=== PATIENT | female | born 1980 | race Caucasian/White ===

== ENCOUNTER 2023-01-04 16:19 | Emergency (ER) | payer BC, SELFPAY ==
[2023-01-04 16:43] VITALS: BP 130/81; PULSE 84; RESP 18; TEMP 36.7; O2SAT 99; BMI 24.3
[2023-01-04 17:06] LABS: Appearance Urine Clear (Clear); Bilirubin Urine Negative (Negative); Blood Urine 2+ (Negative); Color Urine Yellow (Yellow); Glucose Urine Negative (Negative); Ketones Urine Negative (Negative); Leukocyte Esterase Urine Negative (Negative); Nitrite Urine Negative (Negative); Protein Urine Negative (Negative); Urobilinogen Urine 0.2 (0.2-1.0)
[2023-01-04 17:13] LABS: RBC Urine 0-2 (0-2); WBC Urine 0-2 (0-5)
--- NOTE | 2023-01-04 20:34 | CRLHL7_ITS ---
For Patients: As a result of the Century Cures Act, medical imaging exams and procedure reports are released immediately into your electronic medical record. You may view this report before your referring provider. If you have questions, please contact your health care provider. INDICATION: Seven weeks , vaginal bleeding. TECHNIQUE: Ultrasound OB pelvis transabdominal. Real-time cuevas-scale imaging of the pelvis was performed. COMPARISON: None FINDINGS: No intrauterine gestational sac identified, no pole identified. Thickened heterogeneous endometrium measures up to 1.7 cm. Unremarkable appearance of the bilateral ovaries. No adnexal mass identified. IMPRESSION: No intrauterine gestational sac or pole identified. Findings constitute of unknown location, differentials of which include a very early not yet detected with ultrasound, unidentified ectopic , or complete miscarriage. Recommend correlation and trending of serum beta HCG, and repeat ultrasound as clinically indicated. Dictated by Baldomero Medrano MD @ 01/04/2023 10:43:38 PM (Electronically Signed)
--- NOTE | 2023-01-04 20:35 | ED_ITS ---
HPI - General Chief complaint: Vaginal Bleeding Stated complaint: vaginal bleeding Time Seen by Provider: 01/04/23 20:27 History of Present Illness HPI Narrative: This 42-year-old female states that she is 7 weeks with her 4th . She reports some blood in occasional cramping that occurred today. She felt that she was constipated and was bearing down on the toilet and had a discharge of blood in the form a clot coming from her vaginal vault. She called the OB department and was told to come here for evaluation. She had been waiting more than 4 hours before she was able to be seen here because of how busy it is today. She arrives with normal vital signs. She is not describing this as like a heavy menstrual period. Related Data Home Medications Medication Instructions Recorded Confirmed ibuprofen 200 mg tablet 600 mg PO Q6H PRN 06/04/22 01/04/23 albuterol sulfate 90 mcg/actuation 2 puff inhalation Q4-6H PRN 06/05/22 01/04/23 aerosol inhaler prednisone 20 mg tablet 20 mg PO BID 06/05/22 01/04/23 + Iron 01/04/23 Previous Rx's Medication Instructions Recorded fluconazole 150 mg tablet 150 mg PO ONCE #2 tabs 07/21/22 (Diflucan) Allergies Allergy/AdvReac Type Severity Reaction Status Date / Time Penicillins Allergy Verified 01/04/23 16:51 Review of Systems Status of ROS: Reports: 10 or more systems reviewed and unremarkable except as noted in History and below Narrative: Constitutional: No fevers, no weight gain or loss. Eyes: No discharge. No vision changes. HENT: No congestion, no sore throat, no ear pain. Cardiovascular: No chest pain, no palpitations. Respiratory: No shortness of breath, no wheezes, no cough. Gastrointestinal: No vomiting, no diarrhea. She does have some episodes of rectal bleeding from hemorrhoids occasionally. Genitourinary: No dysuria, no hematuria. Musculoskeletal: Normal range of motion. Skin: No rashes, no pruritis. Neurological: No dizziness, weakness, sensory change, speech change. Endo/Heme/Allergies: No bruising or bleeding. No polydipsia. Pysch: no suicidality, no anxiety, no insomnia. All other systems reviewed and are negative. [facility] Medical History (Updated 01/04/23 @ 22:05 by Gaston Desir MD) No significant past medical history Surgical History (Updated 01/04/23 @ 20:42 by Williams Scales RN) No significant past surgical history Social History Smoking Status: Never smoker Second hand tobacco smoke exposure: No How often do you have a drink containing alcohol: never How often do you have six or more drinks on one occasion: Never AUDIT-C Alcohol total score: 0 Non-prescribed substance use: denies use Exam Narrative: Exam Narrative: Constitutional: Well-developed, well-nourished, no acute distress. HEENT: Normocephalic, atraumatic. Neck: Normal range of motion. Nontender. Supple. Heart: Regular. No murmurs. Normal rate. Intact distal pulses. Lungs: Clear to auscultation. No chest discomfort. No wheezes, rhonchi, or rales. Abdomen: Normal bowel sounds. Nontender. No rebound tenderness. Genitalia: Deferred. Back: No midline tenderness. Normal range of motion. Extremities: Normal range of motion. No injury. Skin: Intact. No rash. Warm. No erythema or pallor. Neurologic: No altered sensation. No weakness. Alert and oriented. Psychiatric: No suicidality. No anxiety or depression. No insomnia. Nursing notes and vitals signs are reviewed. Const: Vital Signs, click to edit/add: Vital Signs - 24 hr 01/04/23 16:43 Temperature 98.1 F Pulse Rate [Pulse Oximeter] 84 Respiratory Rate 18 Blood Pressure [Ri ght Upper Arm] 130/81 Pulse Oximetry 99 Oxygen Delivery Me thod Room Air Course Vital Signs Vital signs: Initial Vital Signs Temperature 98.1 F 01/04/23 16:43 Temperature Source Temporal Artery Scan 01/04/23 16:43 Pulse Rate 84 01/04/23 16:43 Pulse Rhythm Regular 01/04/23 16:43 Respiratory Rate 18 01/04/23 16:43 Blood Pressure 130/81 01/04/23 16:43 Blood Pressure Mean 97 01/04/23 16:43 Blood Pressure Position Sitting 01/04/23 16:43 Pulse Oximetry 99 01/04/23 16:43 Oxygen Delivery Method Room Air 01/04/23 16:43 Vital Signs Temperature 98.1 F 01/04/23 16:43 Pulse Rate 84 01/04/23 16:43 Respiratory Rate 18 01/04/23 16:43 Blood Pressure 130/81 01/04/23 16:43 Pulse Oximetry 99 01/04/23 16:43 Oxygen Delivery Method Room Air 01/04/23 16:43 Temperature 98.1 F 01/04/23 16:43 Pulse Rate 84 01/04/23 16:43 Respiratory Rate 18 01/04/23 16:43 Blood Pressure 130/81 01/04/23 16:43 Pulse Oximetry 99 01/04/23 16:43 Oxygen Delivery Method Room Air 01/04/23 16:43 MDM - OB/Uterine Contractions MDM Narrative Medical decision making narrative: This patient comes in reporting vaginal bleeding and some cramping. I went to revisit with her after ultrasound results and she tells me that she has been having some cramping over the past several days with some bleeding and things became much worse today. She states that she is feeling better now. Ultrasound is acquired and shows no evidence of intrauterine or ectopic . This patient most likely had a miscarriage. She states that she would like to have a beta hCG level drawn and would not need to wait for results. The patient does have vital signs that are normal and is okay to return home. I did express my sorrow over this loss of a and stated signs or symptoms where she should return if feeling worse. She is recommended to follow up with her primary physician regarding this. Lab Data Labs: Lab Results 01/04/23 Range/Units 16:58 Urine Color Yellow (Yellow) Urine Appearance Clear (Clear) Urine pH 7.0 (5.0-8.5) Ur Specific [facility] 1.010 (1.000-1.030) Urine Protein Negative (Negative) Urine Glucose (UA) Negative (Negative) Urine Ketones Negative (Negative) Urine Blood 2+ A (Negative) Urine Nitrite Negative (Negative) Urine Bilirubin Negative (Negative) Urine Urobilinogen 0.2 (0.2-1.0) Ur Leukocyte Esterase Negative (Negative) Urine RBC 0-2 (0-2) Urine WBC 0-2 (0-5) Ur Squamous Epith Cells None (None-Few) Urine Bacteria None (None) Discharge Plan Discharge Clinical Impression: Miscarriage Patient Disposition: Home, Self-Care Condition: Stable Additional Instructions: Take plenty of fluids. Use [id number] medicines as needed and directed. Follow up with primary physician or OBGYN physician. Return if worsening. Prescriptions: No Action ibuprofen 200 mg tablet 600 mg PO Q6H PRN + Iron prednisone 20 mg tablet 20 mg PO BID Hold Instructions: Order Change Rx Instructions: BID x 5 days albuterol sulfate 90 mcg/actuation HFA aerosol inhaler 2 puff inhalation Q4-6H PRN Hold Instructions: Order Change fluconazole [Diflucan] 150 mg tablet 150 mg PO ONCE Qty: 2 0RF Hold Instructions: Order Change Rx Instructions: Take one tablet by mouth today. May take additional one tablet in 3 days if symptoms persist. Follow Up/Referrals: Provider,Not a Local [Primary Care Provider] - Stand Alone Forms: Social[employer] Info Instructions
[2023-01-04 20:50] VITALS: BP 136/81; PULSE 75; RESP 16; O2SAT 97
[2023-01-04 21:01] VITALS: BP 112/76; PULSE 78; RESP 16; O2SAT 99
[2023-01-04 22:13] VITALS: BP 122/74; PULSE 79; RESP 16; TEMP 36.9; O2SAT 99
[2023-01-04 22:18] VITALS: BP 122/74; PULSE 79; RESP 16; TEMP 36.9
== END 2023-01-04 22:31 | disposition home or self-care (01) ==
PROVIDERS: Emergency Provider Emergency Medicine Emergency Medical Services
DX: O03.9 Complete or unspecified spontaneous abortion without complication (principal)
CPT/HCPCS: 36415; 76817; 81001; 84702; 99282; 99283; 99284

== ENCOUNTER 2023-01-11 15:19 | Outpatient (CLI) | payer BC, SELFPAY | END 2023-01-11 15:20 | disposition home or self-care (01) | LOC: NFLDREF 01-13 21:54 | PROVIDERS: Visit Provider Obstetrics & Gynecology | DX: O03.9 Complete or unspecified spontaneous abortion without complication (principal) | CPT/HCPCS: 84702 ==

== ENCOUNTER 2023-01-20 08:17 | Outpatient (CLI) | payer BC, SELFPAY | END 2023-01-20 08:18 | disposition home or self-care (01) | PROVIDERS: Visit Provider Family Medicine | DX: Z00.00 Encounter for general adult medical examination without abnormal findings (principal); R53.83 Other fatigue; G89.29 Other chronic pain; Z13.6 Encounter for screening for cardiovascular disorders | CPT/HCPCS: 80053; 80061; 84443; 84702; 85027 ==

== ENCOUNTER 2023-02-22 15:56 | Outpatient (CLI) | payer BC, SELFPAY ==
[2023-02-22 22:39] LABS: PCR FLU A Negative PCR FLU A (Negative); PCR FLU B Negative PCR FLU B (Negative); PCR RSV Negative PCR RSV (Negative)
[2023-02-22 22:44] LABS: SARS PCR* Negative SARS-CoV-2 (Negative); Strep A DNA Probe* NOT DETECTED (Not Detectd)
== END 2023-02-22 15:57 | disposition home or self-care (01) ==
PROVIDERS: PCP Family Medicine; Visit Provider Nurse Practitioner Family
DX: J39.9 Disease of upper respiratory tract, unspecified (principal); J02.9 Acute pharyngitis, unspecified
CPT/HCPCS: 87631; 87651

== ENCOUNTER 2023-04-22 15:34 | Outpatient (CLI) | payer BC, SELFPAY ==
--- NOTE | 2023-04-22 15:40 | CRLHL7_ITS ---
For Patients: As a result of the Century Cures Act, medical imaging exams and procedure reports are released immediately into your electronic medical record. You may view this report before your referring provider. If you have questions, please contact your health care provider. BILATERAL SCREENING MAMMOGRAM WITH COMPUTER-AIDED DETECTION AND TOMOSYNTHESIS TECHNIQUE: CC and MLO views were obtained. These mammographic images have been obtained using full-field digital technique. These mammographic images were interpreted with the benefit of computer-aided detection. Breast tomosynthesis was used in this interpretation. COMPARISON FILM: 12/12/20. FINDINGS: There are scattered areas of fibroglandular density. IMPRESSION: There is no radiographic evidence for malignancy. ASSESSMENT: BI-RADS Category 1: Negative RECOMMENDATION: Routine screening mammogram in 1 year. A lay language report of this examination will be provided to the patient. KEE PANDEY M.D. Diagnostic Radiologist [email or web address] WILLIE/vasyl Transcribed: 04/23/2023, 1:[address]/Dictated by: Kee Pandey MD @ 04/23/2023 12:31:00 PM (Electronically Signed)
== END 2023-04-22 15:35 | disposition home or self-care (01) ==
LOC: MAMMO 15:36
PROVIDERS: PCP Family Medicine; Visit Provider Family Medicine
DX: Z12.31 Encounter for screening mammogram for malignant neoplasm of breast (principal)
CPT/HCPCS: 77063; 77067

== ENCOUNTER 2023-05-03 15:24 | Outpatient (CLI) | payer BC, SELFPAY ==
--- OUTSIDE RECORDS SUMMARY | 2023-05-03 15:38 | XMS_ITS | Clinical Summary ---
Author Name Unknown Organization [facility] Address [address] [place] [address] Care Team Providers Care Door Clamper Name Role Phone Michell Sewell MD Primary Care Provider Source Comments You are receiving this document as you are listed as the primary care provider,follow-up provider, or the patient has been referred to you for consultation.This is in compliance with the Medicare and[facility] EHR Incentive Program,which states Providers who transition their patient to another setting of careor provider of care or refers their patient to another provider of care shouldprovide summary care record for each transition of care or referral. [facility] Allergies Active Allergy Reactions Criticality Noted Date Comments Penicillins 10/06/2002 PN: LW Reaction: HIVES Medications Medication Sig Dispensed Refills Start Date End Date Status ibuprofen (AKA MOTRIN) 200 MG tablet Take 3 tablets by mouth 3 times daily. LW Addl Instr:Take with food. 0 08/11/2010 Active triamcinolone acetonide (AKA KENALOG) 0.1 % ointmentIndications: Skin lesion Apply topically 2 times daily as needed for Itching. 15 g 0 07/25/2014 Active FLUTICASONE FUROATE IN 0 Active ALBUterol sulfate HFA 108 (90 Base) MCG/ACT inhaler Inhale 1-2 Puffs every 4 hours as needed for Wheezing. Also use 15-30 min prior to exercise 1 Inhaler 0 02/16/2019 Active loratadine-pseudoeph edrine (CLARITIN-D 12HOUR) 5-120 MG tablet Take 1 Tablet by mouth two times a day. 0 02/16/2019 Active fluconazole (DIFLUCAN) 150 MG tablet Take 1 Tablet by mouth once for 1 dose. 1 Tablet 0 02/16/2019 Active clindamycin (CLEOCIN) 150 MG capsule Take 1 Capsule by mouth three times a day. 0 02/16/2019 Active Active Problems Problem Noted Date Diagnosed Date Irritable bowel syndrome 10/06/2002 Overview: LW Onset: [id number] Resolved Problems Problem Noted Date Diagnosed Date Resolved Date Noninfectious gastroenteritis and colitis 10/06/2002 10/07/2011 Overview: LW Onset: [id number] ; Colitis Collagenous Immunizations Name Administration Dates Next Due Flu Vac Preserv Free (3+yrs) 01/11/2012, 01/07/2011,12/31/2009, 009,01/26/2008,02/03/2006 H1n1 Miv Sanofi 3+ Yr (Injected) 03/02/2009 Influenza IIV4 (Quadrivalent ) 0.5mL (71427) 2015,01/31/2015 Influenza LAIV (Nasal, 2-49 yrs) 01/31/2013 Influenza Vaccine Q/LAIV Int ranasal 2-49 yrs ([facility]) 01/16/2014 TDAP (BOOSTRIX) 01/11/2012 Td 04/19/1999,06/16/1996 Varicella 08/01/1998(Deferred: Immune by Benoit collier) Family History Medical History Relation Name Comments Cataract Mother Depression Mother Thyroid Disorder Mother Cancer, Lung Maternal Grandmother Cataract Maternal Grandmother Heart Disease Paternal Grandfather Glaucoma Paternal Grandmother Thyroid Disorder Sister 1 Anxiety Sister 2 x 2 Cancer, Breast Negative Family History Cancer, Ovary Negative Family History Relation Name Status Comments Father Alive Mother Alive Maternal Grandfather Maternal Grandmother Paternal Grandfather Paternal Grandmother Alive Sister 1 Alive Sister 2 Alive Social History Tobacco Use Types Packs/Day Years Used Date Smoking Tobacco: Never Smokeless Tobacco: Never Alcohol Use Standard Drinks/Week Comments Not Currently 1 (1 standard drink = 0.6 oz pur e alcohol) occasl Sex and Gender Information Value Date Recorded Sex Assigned at Not on file Gender Identity Not on file Sexual Orientation Not on file Last Filed Vital Signs Vital Sign Reading Time Taken Comments Blood Pressure 126/82 03/20/2019 2:18 PM CUSTOMER SERVICE SALES ASSOCIATE Pulse 68 03/20/2019 2:18 PM CUSTOMER SERVICE SALES ASSOCIATE Temperature 36.6 ??C (97.9 ??F) 08/07/2015 2:50 PM CD T Respiratory Rate 18 09/28/2012 3:35 PM CDT Oxygen Saturation 100% 08/07/2015 2:50 PM CDT Inhaled Oxygen Concentration - - Weight 79.4 kg (175 lb) 03/20/2019 2:18 PM CUSTOMER SERVICE SALES ASSOCIATE Height 170.2 cm (5' 7) 03/20/2019 2:18 PM CUSTOMER SERVICE SALES ASSOCIATE Body Mass Index 27.41 03/20/2019 2:18 PM CUSTOMER SERVICE SALES ASSOCIATE Plan of Treatment Health Maintenance Due Date Last Done Comments HepB (1) 1978 COVID-19 Vaccine (#1) 06/30/1979 HIV Screening (Preventive Services) 1994 Adult Preventive Visit 1996 Cervical Cancer Screening 08/24/20172014, 09/25/2011, 09/25/2011 (Completed), Additional history exists Influenza (#1) 2022 02/14/2020, 01/18, 01/18/2017, Additional history exists DTaP/Tdap/Td (4 - Tdap) 05/20/2026 05/20/19 17, 01/11/2012, 04/19/1999, Additional history exists Zoster/Shingles (1 of 2) 2028 Pneumococcal Aged Out 11/01/2018 No longer eligi ble based on patient's age to complete this topic Hep C Screening (Preventive Services) Completed 03/20/2019 HPV Vaccine Aged Out No longer eligi ble based on patient's age to complete this topic HepA Aged Out No longer eligi ble based on patient's age to complete this topic Hib Aged Out No longer eligi ble based on patient's age to complete this topic IPV (Polio) Aged Out No longer eligi ble based on patient's age to complete this topic MCV4 Aged Out No longer eligi ble based on patient's age to complete this topic Care Teams Door Clamper Relationship Specialty [place] [address] [address] [address] [place] [place] [address] [facility] - General 07/25/14
--- OUTSIDE RECORDS SUMMARY | 2023-05-03 15:38 | XMS_ITS | Encounter Summary ---
Author Name Unknown Organization [facility] Address [address] [place] [address] Care Team Providers Care Guinea Pig Breeder Name Role Phone Michell Sewell MD Primary Care Provider Encounter Details Date Type Department Care Team Description 08/05/1998 [place] [address] [place] [address] Social History Tobacco Use Types Packs/Day Years Used Date Smoking Tobacco: Never Assessed Sex and Gender Information Value Date Recorded Sex Assigned at Not on file Gender Identity Not on file Sexual Orientation Not on file documented as of this encounter Plan of Treatment Not on file documented as of this encounter Visit Diagnoses Not on filedocumented in this encounter Care Teams Guinea Pig Breeder Relationship Specialty [place] [address] [place] [address] PCP - General 07/25/14 documented as of this encounter
== END 2023-05-03 15:25 | disposition home or self-care (01) ==
PROVIDERS: PCP Nurse Practitioner Family; Visit Provider Nurse Practitioner Family
DX: R10.11 Right upper quadrant pain (principal)
CPT/HCPCS: 80053; 82150; 83690; 85025

== ENCOUNTER 2023-05-06 15:47 | Outpatient (CLI) | payer BC, SELFPAY ==
--- OUTSIDE RECORDS SUMMARY | 2023-05-06 15:49 | XMS_ITS | Encounter Summary ---
Author Name Unknown Organization [facility] Address [address] [place] [address] Care Team Providers Care General Operations Manager Name Role Phone Michell Sewell MD Primary Care Provider Encounter Details Date Type Department Care Team Description 08/05/1998 [place] [address] [place] [address] Social History Tobacco Use Types Packs/Day Years Used Date Smoking Tobacco: Never Assessed Sex and Gender Information Value Date Recorded Sex Assigned at Not on file Gender Identity Not on file Sexual Orientation Not on file documented as of this encounter Plan of Treatment Not on file documented as of this encounter Visit Diagnoses Not on filedocumented in this encounter Care Teams General Operations Manager Relationship Specialty [place] [address] [place] [address] PCP - General 07/25/14 documented as of this encounter
--- OUTSIDE RECORDS SUMMARY | 2023-05-06 15:49 | XMS_ITS | Clinical Summary ---
Author Name Unknown Organization [facility] Address [address] [place] [address] Care Team Providers Care Daub Color Mixer Name Role Phone Michell Sewell MD Primary Care Provider Source Comments You are receiving this document as you are listed as the primary care provider,follow-up provider, or the patient has been referred to you for consultation.This is in compliance with the Medicare and[facility] EHR Incentive Program,which states Providers who transition their patient to another setting of careor provider of care or refers their patient to another provider of care shouldprovide summary care record for each transition of care or referral. [facility] Allergies Active Allergy Reactions Criticality Noted Date [...] Irritable bowel syndrome 10/06/2002 Overview: LW Onset: [id number] Resolved Problems Problem Noted Date Diagnosed Date Resolved Date Noninfectious gastroenteritis and colitis 10/06/2002 10/07/2011 Overview: LW Onset: [id number] ; Colitis Collagenous Immunizations Name Administration Dates Next Due Flu Vac Preserv Free (3+yrs) 01/11/2012, 01/07/2011,12/31/2009, 009,01/26/2008,02/03/2006 H1n1 Miv Sanofi 3+ Yr (Injected) 03/02/2009 Influenza IIV4 (Quadrivalent ) 0.5mL ([id number]) 2015,01/31/2015 Influenza LAIV (Nasal, 2-49 yrs) 01/31/2013 [...] Comments Blood Pressure 126/82 03/20/2019 2:18 PM POSITION DESCRIPTION MANAGER Pulse 68 03/20/2019 2:18 PM POSITION DESCRIPTION MANAGER Temperature 36.6 ??C (97.9 ??F) 08/07/2015 2:50 PM CD T Respiratory Rate 18 09/28/2012 3:35 PM CDT Oxygen Saturation 100% 08/07/2015 2:50 PM CDT Inhaled Oxygen Concentration - - Weight 79.4 kg (175 lb) 03/20/2019 2:18 PM POSITION DESCRIPTION MANAGER Height 170.2 cm (5' 7) 03/20/2019 2:18 PM POSITION DESCRIPTION MANAGER Body Mass Index 27.41 03/20/2019 2:18 PM POSITION DESCRIPTION MANAGER Plan of Treatment Health Maintenance Due Date [...] age to complete this topic Care Teams Daub Color Mixer Relationship Specialty [place] [address] [address] [address] [facility] - General 07/25/14
--- NOTE | 2023-05-06 16:00 | CRLHL7_ITS ---
For Patients: As a result of the Century Cures Act, medical imaging exams and procedure reports are released immediately into your electronic medical record. You may view this report before your referring provider. If you have questions, please contact your health care provider. INDICATION: Right upper quadrant pain TECHNIQUE: Conventional two-dimensional grayscale ultrasound of the right upper quadrant. COMPARISON: None. FINDINGS: The gallbladder is normal, with no evidence of stones. No gallbladder wall thickening or pericholecystic fluid is demonstrated. The patient is reportedly not tender over the gallbladder. No biliary ductal dilation is evident. The common bile duct measures 4 mm. The liver is normal in size, shape and echogenicity. The pancreas is within normal limits. The right kidney is unremarkable. The visualized portion of the abdominal aorta and inferior vena cava are negative. IMPRESSION: Negative right upper quadrant ultrasound. Dictated by Zaid Blue MD @ 05/07/2023 10:47:03 AM (Electronically Signed)
== END 2023-05-06 15:48 | disposition home or self-care (01) ==
LOC: US 15:48
PROVIDERS: PCP Nurse Practitioner Family; Visit Provider Nurse Practitioner Family
DX: R10.11 Right upper quadrant pain (principal)
CPT/HCPCS: 76705

== ENCOUNTER 2023-05-20 11:55 | Outpatient (CLI) | payer BC, SELFPAY ==
--- OUTSIDE RECORDS SUMMARY | 2023-05-20 11:59 | XMS_ITS | Encounter Summary ---
Author Name Unknown Organization [facility] Address [address] [place] [address] Care Team Providers Care Marker Shipments Name Role Phone Michell Sewell MD Primary Care Provider Encounter Details Date Type Department Care Team Description 08/05/1998 [place] [address] [place] [address] Social History Tobacco Use Types Packs/Day Years Used Date Smoking Tobacco: Never Assessed Sex and Gender Information Value Date Recorded Sex Assigned at Not on file Gender Identity Not on file Sexual Orientation Not on file documented as of this encounter Plan of Treatment Not on file documented as of this encounter Visit Diagnoses Not on filedocumented in this encounter Care Teams Marker Shipments Relationship Specialty Start [place] [address] [place] [address] PCP - General 07/25/14 documented as of this encounter
--- OUTSIDE RECORDS SUMMARY | 2023-05-20 11:59 | XMS_ITS | Clinical Summary ---
Author Name Unknown Organization [facility] Address [address] [place] [address] Care Team Providers Care Employee Health Nurse Name Role Phone Michell Sewell MD Primary Care Provider Source Comments You are receiving this document as you are listed as the primary care provider,follow-up provider, or the patient has been referred to you for consultation.This is in compliance with the Medicare and[facility] EHR Incentive Program,which states Providers who transition their patient to another setting of careor provider of care or refers their patient to another provider of care shouldprovide summary care record for each transition of care or referral. [facility] Allergies Active Allergy Reactions Criticality Noted Date [...] Irritable bowel syndrome 10/06/2002 Overview: LW Onset: [id number] Resolved Problems Problem Noted Date Diagnosed Date Resolved Date Noninfectious gastroenteritis and colitis 10/06/2002 10/07/2011 Overview: LW Onset: [id number] ; Colitis Collagenous Immunizations Name Administration Dates Next Due Flu Vac Preserv Free (3+yrs) 01/11/2012, 01/07/2011,12/31/2009, 009,01/26/2008,02/03/2006 H1n1 Miv Sanofi 3+ Yr (Injected) 03/02/2009 Influenza IIV4 (Quadrivalent ) 0.5mL ([id number]) 2015,01/31/2015 Influenza LAIV (Nasal, 2-49 yrs) 01/31/2013 [...] Comments Blood Pressure 126/82 03/20/2019 2:18 PM ETCHER [employer]ED [employer] BOARDS Pulse 68 03/20/2019 2:18 PM [employer]CH[employer] BOAR[employer] Temperature 36.6 ??C (97.9 ??F) 08/07/2015 2:50 PM CD T Respiratory Rate 18 09/28/2012 3:35 PM CDT Oxygen Saturation 100% 08/07/2015 2:50 PM CDT Inhaled Oxygen Concentration - - Weight 79.4 kg (175 lb) 03/20/2019 2:18 PM [employer] Height 170.2 cm (5' 7) 03/20/2019 2:18 PM [employer]AR[employer] Body Mass Index 27.41 03/20/2019 2:18 PM [employer]AR[employer] Plan of Treatment Health Maintenance Due Date [...] age to complete this topic Care Teams Employee Health Nurse Relationship Specialty [place] [address] [facility] [place] [address] [facility] - General 07/25/14
--- NOTE | 2023-05-20 12:00 | CRLHL7_ITS ---
For Patients: As a result of the Century Cures Act, medical imaging exams and procedure reports are released immediately into your electronic medical record. You may view this report before your referring provider. If you have questions, please contact your health care provider. Clinical History: Right upper quadrant pain Radionuclide Dose: Nuclear medicine hepatobiliary scan per protocol including gallbladder ejection fraction with CCK. 5.4 mCi 99m Tc mebrofenin IV. 1.5 mcg CCK intravenously. Comparison: None. Findings: Normal hepatic extraction and excretion of the radiopharmaceutical is present. There is prompt visualization of the common bile duct, followed by the gallbladder and in the small bowel. There is no enterogastric reflux. After the administration of CCK, the patient was asymptomatic. There is near complete emptying of the gallbladder, with calculated ejection fraction of 82 percent. Impression: Hyperkinetic gallbladder. Dictated by Eric Kelly MD @ 05/20/2023 3:50:44 PM (Electronically Signed)
== END 2023-05-20 11:56 | disposition home or self-care (01) ==
LOC: NM 11:57
PROVIDERS: PCP Nurse Practitioner Family; Visit Provider Nurse Practitioner Family
DX: R10.11 Right upper quadrant pain (principal); K82.9 Disease of gallbladder, unspecified
CPT/HCPCS: 78227; A9537; J2805

== ENCOUNTER 2023-05-31 08:45 | Outpatient (CLI) | payer BC, SELFPAY ==
--- OUTSIDE RECORDS SUMMARY | 2023-05-31 08:57 | XMS_ITS | Encounter Summary ---
Author Name Unknown Organization [facility] Address [address] [place] [address] Care Team Providers Care Process Engineering Manager Name Role Phone Michell Sewell MD Primary Care Provider Encounter Details Date Type Department Care Team Description 08/05/1998 [place] [address] [place] [address] Social History Tobacco Use Types Packs/Day Years Used Date Smoking Tobacco: Never Assessed Sex and Gender Information Value Date Recorded Sex Assigned at Not on file Gender Identity Not on file Sexual Orientation Not on file documented as of this encounter Plan of Treatment Not on file documented as of this encounter Visit Diagnoses Not on filedocumented in this encounter Care Teams Process Engineering Manager Relationship Specialty [place] [address] [place] [address] PCP - General 07/25/14 documented as of this encounter
--- OUTSIDE RECORDS SUMMARY | 2023-05-31 08:57 | XMS_ITS | Clinical Summary ---
Author Name Unknown Organization [facility] Address [address] [place] [address] Care Team Providers Care Vehicle Maintenance Supervisor Name Role Phone Michell Sewell MD Primary Care Provider Source Comments You are receiving this document as you are listed as the primary care provider,follow-up provider, or the patient has been referred to you for consultation.This is in compliance with the Medicare and[facility] EHR Incentive Program,which states Providers who transition their patient to another setting of careor provider of care or refers their patient to another provider of care shouldprovide summary care record for each transition of care or referral. [facility] Allerg[facility] Active Allergy Reactions Criticality Noted Date [...] Irritable bowel syndrome 10/06/2002 Overview: LW Onset: [id number] Resolved Problems Problem Noted Date Diagnosed Date Resolved Date Noninfectious gastroenteritis and colitis 10/06/2002 10/07/2011 Overview: LW Onset: [id number] ; Colitis Collagenous Immunizations Name Administration Dates Next Due Flu Vac Preserv Free (3+yrs) 01/11/2012, 01/07/2011,12/31/2009, 009,01/26/2008,02/03/2006 H1n1 Miv Sanofi 3+ Yr (Injected) 03/02/2009 Influenza IIV4 (Quadrivalent ) 0.5mL (91409) 2015,01/31/2015 Influenza LAIV (Nasal, 2-49 yrs) 01/31/2013 [...] Comments Blood Pressure 126/82 03/20/2019 2:18 PM FISHER POUND NET OR TRAP Pulse 68 03/20/2019 2:18 PM FISHER POUND NET OR TRAP Temperature 36.6 ??C (97.9 ??F) 08/07/2015 2:50 PM CD T Respiratory Rate 18 09/28/2012 3:35 PM CDT Oxygen Saturation 100% 08/07/2015 2:50 PM CDT Inhaled Oxygen Concentration - - Weight 79.4 kg (175 lb) 03/20/2019 2:18 PM FISHER POUND NET OR TRAP Height 170.2 cm (5' 7) 03/20/2019 2:18 PM FISHER POUND NET OR TRAP Body Mass Index 27.41 03/20/2019 2:18 PM FISHER POUND NET OR TRAP Plan of Treatment Health Maintenance Due Date [...] age to complete this topic Care Teams Vehicle Maintenance Supervisor Relationship Specialty [place] [address] [address] [address] [address] [facility] - General 07/25/14
--- NOTE | 2023-05-31 09:51 | W.ANESCHARGE ---
Anesthesia Charges Start Date/Time Anesthesia Start Date: 05/31/23 Anesthesia Start Time: 09:27 Stop Date/Time Anesthesia Stop Date: 05/31/23 Anesthesia Stop Time: 09:45
--- NOTE | 2023-05-31 12:52 | W.ANESCHARGE ---
Anesthesia Charges Start Date/Time Anesthesia Start Date: 05/31/23 Anesthesia Start Time: 09:27 Stop Date/Time Anesthesia Stop Date: 05/31/23 Anesthesia Stop Time: 09:45
== END 2023-05-31 08:46 | disposition home or self-care (01) ==
LOC: OP CLINIC 08:46
PROVIDERS: PCP Nurse Practitioner Family; Visit Provider Internal Medicine
DX: R10.84 Generalized abdominal pain (principal)
CPT/HCPCS: 00731; 43239; 88305; J2704

== ENCOUNTER 2023-06-22 07:46 | Day surgery (SDC) | payer BC, SELFPAY ==
[2023-06-22] VITALS (14 sets, daily range): BP systolic 112–132; BP diastolic 72–89; PULSE 60–74; RESP 16; TEMP 36.4–36.7; O2SAT 96–100; BMI 27.1
[2023-06-22 08:00] LABS: Ur HCG Qualitative* Negative (Negative)
[2023-06-22] MEDS: SODIUM CHLORIDE 0.9 % (FLUSH) 10 ML SYRINGE IVF (08:10)
[2023-06-22] MEDS: LACTATED RINGERS 1000 ML 1,000 ML 100 ML IV (08:10)
--- NOTE | 2023-06-22 08:47 | P.GSOP_ITS ---
Operative Note Date of procedure: 06/22/23 Pre-op diagnosis: 1. Hyperkinetic gallbladder. Post-op diagnosis: Same Type of Procedure: 1. Laparoscopic cholecystectomy. Indications: 42-year-old female was seen in clinic for evaluation of right-sided abdominal pain wrapping from the right upper quadrant to the right side and radiating to her back. These episodes usually happened after eating out at the restaurants. She described the pain as a ache and that usually woke her up in the middle of the night. Sometimes patient had vomiting to relieve the pain. In the last 1-2 years the pain has become more frequent. Patient states that she is having regular bowel movements and had a colonoscopy in the last 2 years with polyps removed. She takes ibuprofen only occasionally. Upon her workup her gallbladder ultrasound showed no cholelithiasis. Her common bile duct was normal. Patient was then referred for HIDA scan that showed hyperkinetic gallbladder with ejection fraction of 81%. She stated that she was very uncomfortable during her HIDA scan. On clinical exam patient had discomfort to palpation in the right upper quadrant with negative Tucker sign. We had a long discussion with the patient that her symptoms are suggestive of gallbladder disease but may not be entirely due to gallbladder disease. We had a long discussion that muscle strain and peptic ulcer disease can cause similar symptoms. Patient had an upper endoscopy that was normal with no evidence of ulcers. I also discussed with the patient that there is subset of patients who have hyperkinetic gallbladder that can cause their symptoms. After long discussion of risks and benefits, we decided to proceed with laparoscopic cholecystectomy. The procedure was discussed in detail. The risks associated procedure including infection, bleeding, injury to intra-abdominal organs, injury to the common bile duct, and continued pain were all discussed with the patient, and she agreed to proceed. Procedure Description: After discussing the risks and benefits of the procedure, the patient signed informed consent.? The operative site was marked and the patient was brought to the operating room and placed on the operating table in supine position.? Care was taken to pad the patient's pressure points.?? The patient was then intubated by anesthesia.?? The operative site was then prepped and draped in the usual sterile fashion.? A time-out was then performed. A 5-mm laparoscopy port was placed in the left upper quadrant guided by a 5-mm laparoscope placed into a translucent trochar.~ Passage through the layers of the abdominal wall was visualized with the laparoscope.~ A pneumoperitoneum was established. A 0-degree 5-mm laparoscope was advanced into the abdomen. The abdomen was briefly surveyed, and no adhesions were noted. A 10-mm port were placed infraumbilically and two more 5 mm ports were placed on the right under direct visualization by laparoscope. The camera was then changed to 10 mm 30- degree scope and placed into the abdomen through the 10 mm port. The left upper quadrant port entrance was examined and no injury to intra-abdominal organs was identified. The gallbladder was identified, the fundus grasped and retracted cephalad. The infundibulum was grasped and retracted laterally, exposing the peritoneum overlying the triangle of Calot. This was then divided and exposed in a blunt fashion and with hook cautery. Common bile duct was not identified but care was taken not to injure it. The cystic duct was clearly identified and bluntly dissected circumferentially. Cystic artery was identified posterior medial to the cystic duct, the tissues around it were dissected as well. A prominent vein adjacent to the cystic artery was clipped on the patient's side and divided with hook cautery on the specimen side. The cystic artery and the cystic duct were clearly going into the gallbladder. The cystic duct was then doubly ligated with surgical clips on the patient's side and singly clipped on the gallbladder side and divided. The cystic artery was then similarly ligated with clips and divided as well. The gallbladder was dissected from the liver bed in retrograde fashion using hookcautery. A prominent vein was seen in the gallbladder fossa coursing along the medial gallbladder fossa. This was clipped with 5 mm clip on the patient's side and divided with hook cautery and specimen side. The gallbladder was further dissected off the liver and placed into an Endo-Catch bag and removed through the infraumbilical incision. Surgical site was examined for bleeding. No bleeding was seen in the surgical field. The fascia of the infraumbilical incision was then closed with 0-0 vicryl using Bandar Charo needle under direct visualization. Pneumoperitoneum was completely reduced after viewing removal of the trocars under direct vision. The skin was then closed with 4-0 monocryl and steristrips were applied. Instrument, sponge, and needle counts were correct at closure and at the conclusion of the case. The patient was transferred to PACU in stable condition. Findings: No acute inflammation surrounding the gallbladder. Anesthesia: GETA Surgeon: Rylie Geronimo MD Estimated blood loss (mL): 5 Specimen: Gallbladder Condition: stable Disposition: PACU
--- NOTE | 2023-06-22 08:47 | W.PM.H&PU ---
History & Physical Update History & Physical Update H&P Reviewed and patient assessed: No changes noted
[2023-06-22] MEDS: CEFAZOLIN 2 GM INJ IVP (09:09)
[2023-06-22] MEDS: BUPIVACAINE 0.25% 30 ML INJECTION (09:13)
--- NOTE | 2023-06-22 10:01 | W.ANESCHARGE ---
Anesthesia Charges Start Date/Time Anesthesia Start Date: 06/22/23 Anesthesia Start Time: 08:56 Stop Date/Time Anesthesia Stop Date: 06/22/23 Anesthesia Stop Time: 09:59
[2023-06-22] MEDS: fentaNYL 100 MCG/2 ML inj 50 MCG IVP ×2 (10:05→10:15)
[2023-06-22] MEDS: HYDROCODONE-ACETAMIN 5-325 MG 1 TAB PO (10:44)
--- NOTE | 2023-06-22 11:34 | W.ANESCHARGE ---
Anesthesia Charges Start Date/Time Anesthesia Start Date: 06/22/23 Anesthesia Start Time: 08:56 Stop Date/Time Anesthesia Stop Date: 06/22/23 Anesthesia Stop Time: 09:59
== END 2023-06-22 11:55 | disposition home or self-care (01) ==
PROVIDERS: Anesthesiology; PCP Nurse Practitioner Family; Visit Provider Surgery
PROC: 0FT44ZZ Resection of Gallbladder, Percutaneous Endoscopic Approach (ICD-10-PCS; CPT 47562; principal; 2023-06-22 09:00)
DX: K82.8 Other specified diseases of gallbladder (principal)
CPT/HCPCS: 47562; 00790; 81025; 88304; A9270; J0330; J0665; J0690; J1100; J1885; J2250; J2405; J2704; J3010; J3490; J7120

== ENCOUNTER 2023-09-28 15:34 | Outpatient (CLI) | payer BC, SELFPAY ==
--- OUTSIDE RECORDS SUMMARY | 2023-10-02 18:39 | XMS_ITS | Encounter Summary ---
Author Organization [facility] Address [address] [place] [address] Care Team Providers Care Sql Server Bi Developer Name Role Phone Michell Sewell MD Primary Care Provider Encounter Details Date Type Department Care Team (Latest Contact Info) Description 08/05/1998 [place] [address] [place] [address] Social History Tobacco Use Types Packs/Day Years Used Date Smoking Tobacco: Never Assessed Sex and Gender Information Value Date Recorded Sex Assigned at Not on file Gender Identity Not on file Sexual Orientation Not on file documented as of this encounter Plan of Treatment Not on file documented as of this encounter Visit Diagnoses Not on filedocumented in this encounter Care Teams Sql Server Bi Developer Relationship Specialty [place] [address] [place] [address] PCP - General 07/25/14 documented as of this encounter
--- OUTSIDE RECORDS SUMMARY | 2023-10-02 18:39 | XMS_ITS | Clinical Summary ---
Author Organization [facility] Address [address] [place] [address] Care Team Providers Care Program Arranger Name Role Phone Michell Sewell MD Primary Care Provider Source Comments You are receiving this document as you are listed as the primary care provider,follow-up provider, or the patient has been referred to you for consultation.This is in compliance with the Medicare and[facility] EHR Incentive Program,which states Providers who transition their patient to another setting of careor provider of care or refers their patient to another provider of care shouldprovide summary care record for each transition of care or referral. [employer] Allergies Active Allergy Reactions Criticality Noted Date Comments Penicillins 10/06/2002 PN: LW Reaction: HIVES Medications Medication Sig Dispensed Refills Start Date End Date Status ibuprofen (AKA MOTRIN) 200 MG tablet Take 3 tablets by mouth 3 times daily. LW Addl Instr:Take with food. 08/11/2010 Active triamcinolone acetonide (AKA KENALOG) 0.1 % ointmentIndications: Skin lesion Apply topically 2 times daily as needed for Itching. 15 g 0 07/25/2014 Active FLUTICASONE FUROATE IN Active ALBUterol sulfate HFA 108 (90 Base) MCG/ACT inhaler Inhale 1-2 Puffs every 4 hours as needed for Wheezing. Also use 15-30 min prior to exercise 1 Inhaler 02/16/2019 Active loratadine-pseudoeph edrine (CLARITIN-D 12HOUR) 5-120 MG tablet Take 1 Tablet by mouth two times a day. 02/16/2019 Active fluconazole (DIFLUCAN) 150 MG tablet Take 1 Tablet by mouth once for 1 dose. 1 Tablet 02/16/2019 Active clindamycin (CLEOCIN) 150 MG capsule Take 1 Capsule by mouth three times a day. 02/16/2019 Active Active Problems Problem Noted Date Diagnosed Date Irritable bowel syndrome 10/06/2002 Overview: LW Onset: [id number] Resolved Problems Problem Noted Date Diagnosed Date Resolved Date Noninfectious gastroenteritis and colitis 10/06/2002 10/07/2011 Overview: LW Onset: 50Ork95 ; Colitis Collagenous Immunizations Name Administration Dates Next Due Flu Vac Preserv Free (3+yrs) 01/11/2012, 01/07/2011,12/31/2009, 009,01/26/2008,02/03/2006 H1n1 Miv Sanofi 3+ Yr (Injected) 03/02/2009 Influenza IIV4 (Quadrivalent ) 0.5mL (45798) 2015,01/31/2015 Influenza LAIV (Nasal, 2-49 yrs) 01/31/2013 [...] Comments Blood Pressure 126/82 03/20/2019 2:18 PM ASSISTANT IN NURSING Pulse 68 03/20/2019 2:18 PM ASSISTANT IN NURSING Temperature 36.6 ??C (97.9 ??F) 08/07/2015 2:50 PM CD T Respiratory Rate 18 09/28/2012 3:35 PM CDT Oxygen Saturation 100% 08/07/2015 2:50 PM CDT Inhaled Oxygen Concentration - - Weight 79.4 kg (175 lb) 03/20/2019 2:18 PM ASSISTANT IN NURSING Height 170.2 cm (5' 7) 03/20/2019 2:18 PM ASSISTANT IN NURSING Body Mass Index 27.41 03/20/2019 2:18 PM ASSISTANT IN NURSING Plan of Treatment Health Maintenance Due Date Last Done Comments HIV Screening (Preventive Services) 1994 Adult Preventive Visit 1996 HepB (1) 1997 Cervical Cancer Screening 08/24/20172014, 09/25/2011, 09/25/2011 (Completed), Additional history exists COVID-19 Vaccine (2022- season) 2022 Influenza (Season Ended) 2023 020, 02/09/2018, 01/18/2017, Additional history exists DTaP/Tdap/Td (4 - [...] on patient's age to complete this topic Procedures Procedure Name Priority Date/Time Associated Diagnosis Comments HEPATITIS C ANTIBODY, WITH REFLEX Routine 03/20/2019 3:24 PM ASSISTANT IN NURSING Arthralgia, unspecified joint Chronic pain syndrome ANATOMICAL PATH LIQUID BASED Routine 08/24/2014 10:10 AM CDT from Last 3 Months or Most Recently Relevant to Health Maintenance Results * HCAB - Hepatitis C Virus Thalia with Reflex In-House (03/20/2019 3:24 PM ASSISTANT IN NURSING) Pathologist [facility] Hepatitis C Antibody Negative (Non Reactive) Negative (Non Reactive) 03/20/2019 6:59 PM ASSISTANT IN NURSING [facility] Comment:Antibodies to HCV no t detected. Does not exclude the possiblity of exposure to HCV. Blood Venipuncture / Unknown 03/20/2019 3:24 PM ASSISTANT IN NURSING 03/20/2019 3:24 PM ASSISTANT IN NURSING Julien Mclean MD [facility] [address] [place] [address] * Pap Smear (08/24/2014 10:10 AM CDT) 08/24/2014 10:1 0 AM CDT Narrative HP CONVERSION - 08/31/2014 10:50 AM CDT Performed at [facility], [address] [place] [address] FINAL GYNECOLOGICAL CYTOLOGY REPORT Pathology #: [id number] ?Date Obtained: 08/24/2014 ? Date Received: 08/27/2014 INTERPRETATION/RESULTS: Negative for Intraepithelial Lesion or Malignancy. SPECIMEN ADEQUACY: Satisfactory for Evaluation. ??Endocervical cells/transformation zone component present. Verified on 08/31/2014 ??by BARBARA ROJAS(ASCP) (electronic signature) CLINICAL NOTES: ?Abnormal bleeding: No, LMP: 08/14/14, Hormonal [place]: No LIQUID BASED PAP SMEAR SPECIMEN TYPE: ?CERVICAL & HPV REGARDLESS OF PAP RESULT PLEASE NOTE: The pap smear is a screening test designed to aid in the detection of cervical cancer and its precursor lesions. It is not a diagnostic procedure and should not be used as the sole means of detecting cervical cancer. Both false-positive and false-negative reports may occur. ? End of Report Tess Lockhart PA-C LAB_1 HP CONVERSION from Last 3 Months or Most Recently Relevant to Health Maintenance Care Teams Program Arranger Relationship Specialty [place] [address] [address] PCP - General 07/25/14
== END 2023-09-28 15:35 | disposition home or self-care (01) ==
LOC: NFLDREF 10-02 18:37
PROVIDERS: PCP Nurse Practitioner Family; Referring Provider Nurse Practitioner Family; Visit Provider Nurse Practitioner Family
DX: R39.9 Unspecified symptoms and signs involving the genitourinary system (principal)
CPT/HCPCS: 81001; 87086

== ENCOUNTER 2024-02-18 14:58 | Outpatient (CLI) | payer BC, SELFPAY ==
--- OUTSIDE RECORDS SUMMARY | 2024-02-18 15:01 | XMS_ITS | Clinical Summary ---
Author Organization [facility] Address [address] [place] [address] Care Team Providers Care Special Events Planner Name Role Phone Michell Sewell MD Primary Care Provider Source Comments You are receiving this document as you are listed as the primary care provider,follow-up provider, or the patient has been referred to you for consultation.This is in compliance with the Medicare and[facility] EHR Incentive Program,which states Providers who transition their patient to another setting of careor provider of care or refers their patient to another provider of care shouldprovide summary care record for each transition of care or referral. [employer] Allergies Active Allergy Reactions Criticality Noted Date [...] Date Diagnosed Date Irritable bowel syndrome 10/06/2002 Overview (11/21/2015): LW Onset: [id number] Resolved Problems Problem Noted Date Diagnosed Date Resolved Date Noninfectious gastroenteritis and colitis 10/06/2002 10/07/2011 Overview (12/09/2016): LW Onset: 77Kpg87 ; Colitis Collagenous Immunizations Name Administration Dates Next Due Flu Vac Preserv Free (3+yrs) 01/11/2012, 01/07/2011,12/31/2009, 009,01/26/2008,02/03/2006 H1n1 Miv Sanofi 3+ Yr (Injected) 03/02/2009 Influenza IIV4 (Quadrivalent ) 0.5mL ([id number]) 2015,01/31/2015 Influenza LAIV (Nasal, 2-49 yrs) 01/31/2013 [...] Comments Blood Pressure 126/82 03/20/2019 2:18 PM FUNERAL ATTENDANT Pulse 68 03/20/2019 2:18 PM FUNERAL ATTENDANT Temperature 36.6 ??C (97.9 ??F) 08/07/2015 2:50 PM CD T Respiratory Rate 18 09/28/2012 3:35 PM CDT Oxygen Saturation 100% 08/07/2015 2:50 PM CDT Inhaled Oxygen Concentration - - Weight 79.4 kg (175 lb) 03/20/2019 2:18 PM FUNERAL ATTENDANT Height 170.2 cm (5' 7) 03/20/2019 2:18 PM FUNERAL ATTENDANT Body Mass Index 27.41 03/20/2019 2:18 PM FUNERAL ATTENDANT Plan of Treatment Health Maintenance Due Date Last Done Comments Colon Cancer Screening Plan Due 1978 Mammogram 1978 HIV Screening (Preventive Services) 1994 Adult Preventive Visit 1996 HepB (1) 1997 Cervical Cancer Screening 08/24/20172014, 09/25/2011, 09/25/2011 (Completed), Additional history exists COVID-19 Vaccine ( season) 2023 Influenza (#1) 2023 02/14/2020, 01/18, 01/18/2017, Additional history exists Cholesterol 12/31/2023 10/06/2011, 05/31/2009 DTaP/Tdap/Td (4 - Tdap) 05/20/2026 05/20/19 17, [...] on patient's age to complete this topic Infant RSV Aged Out No longer eligi ble based on patient's age to complete this topic MCV4 Aged Out No longer eligi ble based on patient's age to complete this topic Procedures Procedure Name Priority Date/Time Associated Diagnosis Comments HEPATITIS C ANTIBODY, WITH REFLEX Routine 03/20/2019 3:24 PM FUNERAL ATTENDANT Arthralgia, unspecified joint Chronic pain syndrome ANATOMICAL PATH LIQUID BASED Routine 08/24/2014 10:10 AM CDT LIPID PANEL & DIRECT LDL (IF NEEDED) Routine 10/06/2011 10:23 AM CDT Routine general medical examination at a health care facility from Last 3 Months or Most Recently Relevant to Health Maintenance Results * HCAB - Hepatitis C Virus Thalia with Reflex In-House (03/20/2019 3:24 PM FUNERAL ATTENDANT) Hepatitis C Antibody Negative (Non Reactive) Negative (Non Reactive) 03/20/2019 6:59 PM FUNERAL ATTENDANT [facility] Comment:Antibodies to HCV no t detected. Does not exclude the possiblity of exposure to HCV. Blood Venipuncture / Unknown 03/20/2019 3:24 PM FUNERAL ATTENDANT 03/20/2019 3:24 PM FUNERAL ATTENDANT Julien Mclean MD LAB_1 [facility] [address] [place] [address] * Pap Smear (08/24/2014 10:10 AM CDT) 08/24/2014 10:1 0 AM CDT Narrative HP CONVERSION - 08/31/2014 10:50 AM CDT Performed at [facility], [address] [place] [address] FINAL GYNECOLOGICAL CYTOLOGY REPORT Pathology #: [id number] ?Date Obtained: 08/24/2014 ? Date Received: 08/27/2014 [...] End of Report Tess Lockhart PA-C LAB_1 Performing Organization Address [facility] Co de Phone Number HP CONVERSION * Lipid Panel and Direct LDL(If Needed) (10/06/2011 10:23 AM CDT) Cholesterol 156 0 - 200 mg/dL HP CONVERSION Triglycerides 74 0 - 149 mg/dL HP CONVERSION HDL Cholesterol 44 >39 mg/dL HP CONVERSION Cholesterol/HDL Ratio Screen 3.5 HP CONVERSION LDL Calculated 97 19 - 130 mg/dL HP CONVERSION Hours Fasting 12.0 HP CONVERSION 10/06/2011 10:2 3 AM CDT 10/06/2011 2:45 PM CDT Narrative HP CONVERSION - 10/06/2011 3:26 PM CDT Performed at [facility], [address] [place] [address] Transcriptions 05/29/2016 5:09 PM CSTNotes Recorded by Maria Elena Lind DO on 10/09/2011 at 12:12 PMNotified of current results and awaiting other. Maria Elena Francis DO LAB_1 Performing Organization Address [facility] Co de Phone Number HP CONVERSION from Last 3 Months or Most Recently Relevant to Health Maintenance Care Teams Special Events Planner Relationship Specialty [place] [address] [address] [facility] - General 07/25/14
--- OUTSIDE RECORDS SUMMARY | 2024-02-18 15:01 | XMS_ITS | Encounter Summary ---
Author Organization [facility] Address [address] [place] [address] Care Team Providers Care Sales Closer Name Role Phone Michell Sewell MD Primary Care Provider Encounter Details Date Type Department Care Team (Latest Contact Info) Description 08/05/1998 [place] [address] [place] [address] Social History Tobacco Use Types Packs/Day Years Used Date Smoking Tobacco: Never Assessed Sex and Gender Information Value Date Recorded Sex Assigned at Not on file Gender Identity Not on file Sexual Orientation Not on file documented as of this encounter Plan of Treatment Not on file documented as of this encounter Visit Diagnoses Not on filedocumented in this encounter Care Teams Sales Closer Relationship Specialty [place] [address] [address] [place] [address] PCP - General 07/25/14 documented as of this encounter
== END 2024-02-18 14:59 | disposition home or self-care (01) ==
PROVIDERS: PCP Nurse Practitioner Family; Visit Provider Obstetrics & Gynecology
DX: O03.9 Complete or unspecified spontaneous abortion without complication (principal)
CPT/HCPCS: 83520; 84443; 84702

== ENCOUNTER 2024-02-25 15:33 | Outpatient (CLI) | payer BC, SELFPAY ==
--- OUTSIDE RECORDS SUMMARY | 2024-02-26 20:12 | XMS_ITS | Encounter Summary ---
Author Organization [facility] Address [address] [place] [address] Care Team Providers Care Fishing Accessories Maker Name Role Phone Michell Sewell MD Primary Care Provider Encounter Details Date Type Department Care Team (Latest Contact Info) Description 08/05/1998 [place] [address] [place] [address] Social History Tobacco Use Types Packs/Day Years Used Date Smoking Tobacco: Never Assessed Sex and Gender Information Value Date Recorded Sex Assigned at Not on file Gender Identity Not on file Sexual Orientation Not on file documented as of this encounter Plan of Treatment Not on file documented as of this encounter Visit Diagnoses Not on filedocumented in this encounter Care Teams Fishing Accessories Maker Relationship Specialty Start [place] [address] [address] [place] [address] PCP - General 07/25/14 documented as of this encounter
--- OUTSIDE RECORDS SUMMARY | 2024-02-26 20:12 | XMS_ITS | Clinical Summary ---
Author Organization [facility] Address [address] [place] [address] Care Team Providers Care Senior Accounting Manager Name Role Phone Michell Sewell MD Primary Care Provider Source Comments You are receiving this document as you are listed as the primary care provider,follow-up provider, or the patient has been referred to you for consultation.This is in compliance with the Medicare and[facility] EHR Incentive [facility],which states Providers who transition their patient to another setting of careor provider of care or refers their patient to another provider of care shouldprovide summary care record for each transition of care or referral. [place] Allergies Active Allergy Reactions Criticality Noted Date [...] bowel syndrome 10/06/2002 Overview (11/21/2015): LW Onset: [id number] Resolved Problems Problem Noted Date Diagnosed Date Resolved Date Noninfectious gastroenteritis and colitis 10/06/2002 10/07/2011 Overview (12/09/2016): LW Onset: [id number] ; Colitis Collagenous Immunizations Name Administration Dates Next Due Flu Vac Preserv Free (3+yrs) 01/11/2012, 01/07/2011,12/31/2009, 009,01/26/2008,02/03/2006 H1n1 Miv Sanofi 3+ Yr (Injected) 03/02/2009 Influenza IIV4 (Quadrivalent ) 0.5mL (47920) 2015,01/31/2015 Influenza LAIV (Nasal, 2-49 yrs) 01/31/2013 [...] Comments Blood Pressure 126/82 03/20/2019 2:18 PM MOBILE UI DESIGNER Pulse 68 03/20/2019 2:18 PM MOBILE UI DESIGNER Temperature 36.6 ??C (97.9 ??F) 08/07/2015 2:50 PM CD T Respiratory Rate 18 09/28/2012 3:35 PM CDT Oxygen Saturation 100% 08/07/2015 2:50 PM CDT Inhaled Oxygen Concentration - - Weight 79.4 kg (175 lb) 03/20/2019 2:18 PM MOBILE UI DESIGNER Height 170.2 cm (5' 7) 03/20/2019 2:18 PM MOBILE UI DESIGNER Body Mass Index 27.41 03/20/2019 2:18 PM MOBILE UI DESIGNER Plan of Treatment Health Maintenance Due Date [...] ANTIBODY, WITH REFLEX Routine 03/20/2019 3:24 PM MOBILE UI DESIGNER Arthralgia, unspecified joint Chronic pain syndrome ANATOMICAL PATH LIQUID BASED Routine 08/24/2014 10:10 AM CDT LIPID PANEL & DIRECT LDL (IF NEEDED) Routine 10/06/2011 10:23 AM CDT Routine general medical examination at a health care facility from Last 3 Months or Most Recently Relevant to Health Maintenance Results * HCAB - Hepatitis C Virus Thalia with Reflex In-House (03/20/2019 3:24 PM MOBILE UI DESIGNER) Hepatitis C Antibody Negative (Non Reactive) Negative (Non Reactive) 03/20/2019 6:59 PM MOBILE UI DESIGNER [facility] Comment:Antibodies to HCV no t detected. Does not exclude the possiblity of exposure to HCV. Blood Venipuncture / Unknown 03/20/2019 3:24 PM MOBILE UI DESIGNER 03/20/2019 3:24 PM MOBILE UI DESIGNER Julien Mclean MD LAB_1 [facility] [address] [place] [address] * Pap Smear (08/24/2014 10:10 AM CDT) 08/24/2014 10:1 0 AM CDT Narrative HP CONVERSION - 08/31/2014 10:50 AM CDT Performed at [facility], [address] [place] [address] FINAL GYNECOLOGICAL CYTOLOGY REPORT Pathology #: [id number] ?Date Obtained: 08/24/2014 ? Date Received: 08/27/2014 [...] Tess Lockhart PA-C LAB_1 Performing Organization Address City/[facility] Co de Phone Number [...] - 10/06/2011 3:26 PM CDT Performed at [facility], [address] [place] [address] Transcriptions 05/29/2016 5:09 PM CSTNotes Recorded by Maria Elena Lind DO on 10/09/2011 at 12:12 PMNotified of current results and awaiting other. Maria Elena Francis DO LAB_1 Performing Organization Address [facility] Co de Phone Number HP CONVERSION from Last 3 Months or Most Recently Relevant to Health Maintenance Care Teams Senior Accounting Manager Relationship Specialty [place] [address] [address] [address] [facility] - General 07/25/14
== END 2024-02-25 15:34 | disposition home or self-care (01) ==
PROVIDERS: PCP Nurse Practitioner Family; Referring Provider Nurse Practitioner Family; Visit Provider Obstetrics & Gynecology
DX: O03.9 Complete or unspecified spontaneous abortion without complication (principal)
CPT/HCPCS: 84702

== ENCOUNTER 2024-02-28 15:01 | Outpatient (CLI) | payer BC, SELFPAY ==
--- OUTSIDE RECORDS SUMMARY | 2024-02-28 15:06 | XMS_ITS | Encounter Summary ---
Author Organization [facility] Address [address] [place] [address] Care Team Providers Care Licensed Appraiser Name Role Phone Michell Sewell MD Primary Care Provider Encounter Details Date Type Department Care Team (Latest Contact Info) Description 08/05/1998 [place] [address] [place] [address] Social History Tobacco Use Types Packs/Day Years Used Date Smoking Tobacco: Never Assessed Sex and Gender Information Value Date Recorded Sex Assigned at Not on file Gender Identity Not on file Sexual Orientation Not on file documented as of this encounter Plan of Treatment Not on file documented as of this encounter Visit Diagnoses Not on filedocumented in this encounter Care Teams Licensed Appraiser Relationship Specialty [place] [address] [address] [address] PCP - General 07/25/14 documented as of this encounter
--- OUTSIDE RECORDS SUMMARY | 2024-02-28 15:06 | XMS_ITS | Clinical Summary ---
[facility] Organization [facility] Address [address] [place] [address] Care Team Providers Care Scrap Iron Loader Name Role Phone Michell Sewell MD Primary Care Provider Source Comments You are receiving this document as you are listed as the primary care provider,follow-up provider, or the patient has been referred to you for consultation.This is in compliance with the Medicare and[facility] E[facility] Incentive Program,which states Providers who transition their patient to another setting of careor provider of care or refers their patient to another provider of care shouldprovide summary care record for each transition of care or referral. [place] Allergies Active Allergy Reactions Criticality Noted Date [...] bowel syndrome 10/06/2002 Overview (11/21/2015): LW Onset: [id number] Resolved Problems Problem Noted Date Diagnosed Date Resolved Date Noninfectious gastroenteritis and colitis 10/06/2002 10/07/2011 Overview (12/09/2016): LW Onset: [id number] ; Colitis Collagenous Immunizations Name Administration Dates Next Due Flu Vac Preserv Free (3+yrs) 01/11/2012, 01/07/2011,12/31/2009, 009,01/26/2008,02/03/2006 H1n1 Miv Sanofi 3+ Yr (Injected) 03/02/2009 Influenza IIV4 (Quadrivalent ) 0.5mL (90045) 2015,01/31/2015 Influenza LAIV (Nasal, 2-49 yrs) 01/31/2013 [...] Comments Blood Pressure 126/82 03/20/2019 2:18 PM MILANESE KNITTING MACHINE OPERATOR Pulse 68 03/20/2019 2:18 PM MILANESE KNITTING MACHINE OPERATOR Temperature 36.6 ??C (97.9 ??F) 08/07/2015 2:50 PM CD T Respiratory Rate 18 09/28/2012 3:35 PM CDT Oxygen Saturation 100% 08/07/2015 2:50 PM CDT Inhaled Oxygen Concentration - - Weight 79.4 kg (175 lb) 03/20/2019 2:18 PM MILANESE KNITTING MACHINE OPERATOR Height 170.2 cm (5' 7) 03/20/2019 2:18 PM MILANESE KNITTING MACHINE OPERATOR Body Mass Index 27.41 03/20/2019 2:18 PM MILANESE KNITTING MACHINE OPERATOR Plan of Treatment Health Maintenance Due Date [...] on patient's age to complete this topic RSV Aged Out No longer eligi ble based on patient's age to complete this topic MCV4 Aged Out No longer eligi ble based on patient's age to complete this topic Procedures Procedure Name Priority Date/Time Associated Diagnosis Comments HEPATITIS C ANTIBODY, WITH REFLEX Routine 03/20/2019 3:24 PM MILANESE KNITTING MACHINE OPERATOR Arthralgia, unspecified joint Chronic pain syndrome ANATOMICAL PATH LIQUID BASED Routine 08/24/2014 10:10 AM CDT LIPID PANEL & DIRECT LDL (IF NEEDED) Routine 10/06/2011 10:23 AM CDT Routine general medical examination at a health care facility from Last 3 Months or Most Recently Relevant to Health Maintenance Results * HCAB - Hepatitis C Virus Thalia with Reflex In-House (03/20/2019 3:24 PM MILANESE KNITTING MACHINE OPERATOR) Hepatitis C Antibody Negative (Non Reactive) Negative (Non Reactive) 03/20/2019 6:59 PM MILANESE KNITTING MACHINE OPERATOR [facility] Comment:Antibodies to HCV no t detected. Does not exclude the possiblity of exposure to HCV. Blood Venipuncture / Unknown 03/20/2019 3:24 PM MILANESE KNITTING MACHINE OPERATOR 03/20/2019 3:24 PM MILANESE KNITTING MACHINE OPERATOR Julien Mclean MD LAB_1 [facility] [address] [place] [address] * Pap Smear (08/24/2014 10:10 AM CDT) 08/24/2014 10:1 0 AM CDT Narrative HP CONVERSION - 08/31/2014 10:50 AM CDT Performed at [facility], [address] [place] [address] FINAL GYNECOLOGICAL CYTOLOGY REPORT Pathology #: [id number] ?Date Obtained: 08/24/2014 ? Date Received: 08/27/2014 [...] Tess Lockhart PA-C LAB_1 Performing Organization Address City/[facility] Co de Phone Number HP CONVERSION * [...] - 10/06/2011 3:26 PM CDT Performed at [facility], [address] [place] [address] Transcriptions 05/29/2016 5:09 PM CSTNotes Recorded by Maria Elena Lind DO on 10/09/2011 at 12:12 PMNotified of current results and awaiting other. Maria Elena Francis DO LAB_1 Performing Organization Address [facility] Co de Phone Number HP CONVERSION from Last 3 Months or Most Recently Relevant to Health Maintenance Care Teams Scrap Iron Loader Relationship Specialty [place] [address] [address] [address] [facility] - General 07/25/14
--- NOTE | 2024-02-28 15:15 | CRLHL7_ITS ---
For Patients: As a result of the Century Cures Act, medical imaging exams and procedure reports are released immediately into your electronic medical record. You may view this report before your referring provider. If you have questions, please contact your health care provider. CLINICAL HISTORY: Unspecified pain TECHNIQUE: 2D cuevas scale ultrasound. In addition color Doppler and spectral Doppler analysis was performed of the pelvis using a transabdominal and transvaginal approach. FINDINGS: Uterus measures 9.4 x 3.9 x 7.1 cm. The endometrial lining appears normal and measures 4 mm in thickness. The right ovary measures 3.7 x 2.9 x 3.7 cm in size and the left ovary measures 2.7 x 1.4 x 1.9 cm. The ovaries demonstrate normal arterial and venous blood flow on color Doppler and spectral Doppler analysis. There are no suspicious fluid collections within the cul-de-sac. Simple anechoic right ovarian cyst measures 3.3 x 2.4 x 3.1 cm. Prominent vessels are present in the adnexa bilaterally. IMPRESSION: Simple cyst right ovary measures 3.3 cm. No ovarian torsion or excess pelvic free fluid. Prominent bilateral adnexal vessels could suggest pelvic congestion syndrome. Dictated by Kee Walker MD @ 02/29/2024 10:49:15 AM (Electronically Signed)
== END 2024-02-28 15:02 | disposition home or self-care (01) ==
LOC: US 15:02
PROVIDERS: PCP Nurse Practitioner Family; Visit Provider Obstetrics & Gynecology
DX: R10.9 Unspecified abdominal pain (principal); N83.201 Unspecified ovarian cyst, right side
CPT/HCPCS: 76830; 76856; 93976

== ENCOUNTER 2024-06-20 18:07 | Outpatient (CLI) | payer BC, SELFPAY | END 2024-06-20 18:08 | disposition home or self-care (01) | PROVIDERS: PCP Nurse Practitioner Family; Visit Provider Nurse Practitioner Family | DX: K14.6 Glossodynia (principal) | CPT/HCPCS: 87252 ==

== ENCOUNTER 2024-11-21 17:20 | Outpatient (CLI) | payer BC, SELFPAY | END 2024-11-21 17:21 | disposition home or self-care (01) | LOC: NFLDREF 11-24 11:32 | PROVIDERS: PCP Nurse Practitioner Family; Referring Provider Nurse Practitioner Family; Visit Provider Physician Assistant | DX: R05.9 Cough, unspecified (principal); J45.909 Unspecified asthma, uncomplicated; R05.8 Other specified cough; R05.1 Acute cough | CPT/HCPCS: 84484; 85379 ==